=== PATIENT | female | born 1950 | race Caucasian/White ===

== ENCOUNTER 2017-01-03 18:26 | Inpatient (IN) | payer OTHER ==
--- NOTE | ~2017-01-03 | HP ---
History And Physical [facility] [address] [place]. [address] NAME: ESTRELLA MANN : 50 STATUS : ADM IN [facility]#: [id number] AGE: 66 ADM/REG DATE : 01/03/17 MR#: [id number] REPORT SERV DATE: 01/04/17 DICTATED BY: KAI AYON DATE: 01/04/17 REPORT STATUS : Draft TRANSCRIBED BY: MODCorinna DATE: 01/04/17 DATE OF ADMISSION: 01/03/2017 CHIEF COMPLAINT: A 66-year-old female presenting with recurrent pulmonary embolism. HISTORY OF PRESENT ILLNESS: The patient's history was obtained through careful interview with the patient and coupled with review of [facility] and [facility] records. The patient has a longstanding history of recurrent pulmonary embolism. She first suffered DVT and pulmonary embolism in 1998. She was on blood thinner for a number of years. For various reasons, she had to come off blood thinners, but then had a recurrence of pulmonary embolism in 2004. Her medical course has been complicated by GI bleed and vaginal bleeding. Most recently, the patient had an extreme uterine bleeding complication from anticoagulation in August 2016. She states that she recalls having about 8 units of blood transfused because of this. She was told that she really needed to come off her Coumadin because of the severity of the bleeding at that time (so she has been off Coumadin since August 2016). She was evaluated for possible surgery, but because of underlying coronary artery disease and her debilitating morbid obesity and disability, she was considered a nonsurgical candidate at this time. The patient has been doing fairly well over the last few months, but then, she has noticed increasing fatigue over the last week or two. Then a few days prior to this admission, she began to develop shortness of breath characterized by dyspnea on exertion and intermittent chest discomfort. The chest discomfort became quite severe on the evening of admission, it is in her mid and lower lung radiating to the back, a sharp quality, 7 to 8 out of 10 severity. She has had a nonproductive cough. She notices that her pain was relieved by nitroglycerin, but also exacerbated by deep breathing and coughing. She has had no further bright red blood per rectum. No further uterine or vaginal bleeding. No fevers or chills. No nausea or vomiting. No lightheadedness. No leg symptoms such as swelling or pain. She claims the diabetes is under good control. REVIEW OF SYSTEMS: Otherwise, a 14-point review of systems was obtained and was negative. PAST MEDICAL HISTORY: 1. Pulmonary embolism, diagnosed in 1998 with recurrence in 2004. 2. Vaginal bleeding, thought to be secondary to either fibroid uterus which has been History And Physical [address] [address] NAME: ESTRELLA MANN : 50 STATUS : ADM IN PAT#: [id number] AGE: 66 ADM/REG DATE : 01/03/17 MR#: [id number] REPORT SERV DATE: 01/04/17 DICTATED BY: KAI AYON DATE: 01/04/17 REPORT STATUS : Draft TRANSCRIBED BY: SOMMER DATE: 01/04/17 described in the past and/or endometriosis. For this reason taken off the Coumadin in August 2016. 3. GI bleed, followed by Dr. Scotty Hernandez. 4. Coronary artery disease with a catheterization of the heart in 2002 that showed multivessel disease, which was unamenable to percutaneous intervention and it was thought the patient was too ill chronically to undergo a CABG. 5. Diabetes. 6. Morbid obesity. 7. Pneumonia. 8. Systolic congestive heart failure. Ejection fraction of 45%. 9. Shingles. 10.B12 deficiency. 11.Sacroiliitis. 12.Diverticulitis. 13.Psoriasis. PAST SURGICAL HISTORY: 1. Cholecystectomy. 2. Distal femur fracture repair. 3. Appendectomy. 4. . 5. Hysteroscopy. ALLERGIES: IODINE, CODEINE, ASPIRIN, IBUPROFEN, CELECOXIB, FLOCTAFENINE, AND SHELLFISH. SOCIAL HISTORY: Quit smoking in 1979. No alcohol abuse. She is . Wheelchair bound. Has three children and seven grandchildren. Lives in [place], [place]. FAMILY HISTORY: Diabetes and heart disease. No family history of blood clots. CURRENT MEDICATIONS: Include DuoNeb nebulizers, aspirin 81 mg p.o. daily, Lipitor 80 mg p.o. daily, Bumex 2 mg in the morning, Bentyl p.r.n., NovoLog 15 units subcutaneous three times a day, Levemir 30 units subcutaneous at bedtime, isosorbide mononitrate 30 mg p.o. daily, Megace 20 mg p.o. daily, Lopressor 100 mg p.o. b.i.d. multivitamin, nitroglycerin as needed, Prilosec 20 mg p.o. b.i.d., Zantac 300 mg p.o. b.i.d., Ranexa 1000 mg p.o. b.i.d., Zoloft 200 mg p.o. daily, and tramadol 50 mg every 6 hours p.r.n. PHYSICAL EXAMINATION: VITAL SIGNS: Temperature 99.0, pulse of 99, blood pressure 104/59, respiratory rate 12, O2 saturation 99% on 3 L nasal cannula. GENERAL: A chronically ill-appearing female, but in no evidence of acute distress at this time. HEENT: Pupils equal, round, and reactive to light. No conjunctival pallor. No scleral icterus. Nares are patent. Oropharynx is clear of obstruction. Moist mucous membranes. NECK: Trachea midline. No thyromegaly. LYMPH: No cervical lymphadenopathy. No supraclavicular lymphadenopathy. RESPIRATORY: Clear to auscultation at bases. No wheezes, no rales, no rhonchi. The patient History And Physical [address] [address] NAME: ESTRELLA MANN : 50 STATUS : ADM IN [facility]#: [id number] AGE: 66 ADM/REG DATE : 01/03/17 MR#: [id number] REPORT SERV DATE: 01/04/17 DICTATED BY: KAI AYON DATE: 01/04/17 REPORT STATUS : Draft TRANSCRIBED BY: SOMMER DATE: 01/04/17 has a normal respiratory effort. CARDIOVASCULAR: Regular rate and rhythm. No murmurs, rubs, or gallops. No current extremity edema is appreciated. ABDOMEN: A central pattern of morbid obesity. No tenderness throughout, nondistended. No hepatosplenomegaly. DERMATOLOGICAL: Warm and dry extremities. No pallor, no cyanosis. PSYCHIATRIC: Normal affect. Good mood. Alert and oriented x3. LABORATORY DATA: White blood count 7.0, hemoglobin 13, hematocrit 40, platelets 143. Sodium 141, potassium 3.8, chloride 103, bicarb 29, BUN 19, creatinine 1.0, glucose 162. Brain natriuretic peptide 419, lipase 123, albumin 2.8, alkaline phosphatase 141, ALT 11, AST 14. STUDIES: 1. CT angiogram of the chest shows bilateral pulmonary embolism. 2. EKG by my own evaluation shows an S1Q3T3 phenomenon with sinus tachycardia at 100 beats per minute. ASSESSMENT AND PLAN: 1. Acute pulmonary embolism. Place on heparin drip IV, Coumadin. Check a venous Doppler ultrasound of lower extremities. Check an echocardiogram to rule out right ventricular strain. 2. History of bleeding, both gastrointestinal bleeding and vaginal bleeding in the past. For this reason, she was taken off her Coumadin in August 2016, not considered a good surgical candidate at this time. Sees Dr. Barney Pires, icing coater, outpatient. 3. Coronary artery disease with multivessel disease diagnosed in 2002 unamendable to percutaneous intervention. Then not considered a good coronary artery bypass graft candidate either. 4. Morbid obesity with functional paraplegia. Wheelchair bound. KPL/MODL Kai Ayon M.D. / [id number] CC: Clara Staley D.O. Joseph Portera, M.D.
--- NOTE | ~2017-01-03 | CN ---
Consultation Report [facility] [address] [place]. [address] NAME: ESTRELLA HEATH : 50 STATUS : ADM IN [facility]#: [id number] AGE: 66 ADM/REG DATE : 01/03/17 MR#: [id number] REPORT SERV DATE: 01/06/17 DICTATED BY: MASHA CAMPOS DATE: 01/06/17 REPORT STATUS : Draft TRANSCRIBED BY: MODCorinna DATE: 01/06/17 DATE OF CONSULTATION: 01/05/2017 REASON FOR CONSULTATION: Recurrent pulmonary embolism. CHIEF COMPLAINT: Shortness of breath. HISTORY OF PRESENT ILLNESS: Mrs. Heath is a 66-year-old female with a past medical history of obesity and has had recurrent pulmonary embolisms now for almost two decades. The patient has had complications with recurrent DVT and PE, but also has had GI bleeding and vaginal bleeding. She has an underlying cardiomyopathy. She is not a candidate for a vaginal hysterectomy and we discussed that. However, her INR was 1.1 and she has quite a significant amount of clot burden. Fortunately, her oxygen saturation and hypoxia is okay. The patient's blood pressure is not hypotensive. The patient actually seems quite comfortable. Otherwise, no further complaints. PAST MEDICAL HISTORY: Recurrent pulmonary embolism, vaginal bleeding, unresectable uterine fibroid, GI bleeding, diverticulitis, coronary artery disease, diabetes, morbid obesity, systolic congestive heart failure, psoriasis. MEDICATIONS: Home medications reviewed, current medication list includes DuoNeb. ALLERGIES: MULTIPLE ALLERGIES NOTED ON THE CHART. SOCIAL HISTORY: The patient quit smoking around three and a half decades ago. She is , with her at the bedside. FAMILY HISTORY: Other family members with heart disease and diabetes. PHYSICAL EXAMINATION: VITAL SIGNS: Oxygen saturation 96% on 3 L, blood pressure currently 112/55, temperature is afebrile, and heart rate is in the 80s. GENERAL: The patient is alert and oriented, in no acute distress. PULMONARY: Distant, but otherwise clear. No wheezing. CARDIAC: Regular rate. No murmurs. ABDOMEN: Soft, nontender, nondistended. NEUROLOGIC: The patient is able to move all of her extremities, but has functional paraplegia due to weight. EXTREMITIES: No lower extremity edema. Peripheral pulses noted bilaterally. No cyanosis. LABORATORY EXAMINATION: No anemia. INR 1.1, therapeutic on heparin. Good kidney function. IMAGING: CTA on 01/03 shows a significant amount of bilateral PE. ASSESSMENT AND PLAN: Mrs. Heath is a 66-year-old female with a past medical history Consultation Report [address] [address] NAME: ESTRELLA HEATH : 50 STATUS : ADM IN PAT#: [id number] AGE: 66 ADM/REG DATE : 01/03/17 MR#: [id number] REPORT SERV DATE: 01/06/17 DICTATED BY: MASHA CAMPOS DATE: 01/06/17 REPORT STATUS : Draft TRANSCRIBED BY: MODL DATE: 01/06/17 noted above, who presents to the Pulmonary Consultation Service for consideration of this pulmonary embolism and therapies thereof. Acute pulmonary embolism with a history of recurrent pulmonary embolism. The patient most likely needs lifelong anticoagulation, which has been complicated by bleeding. At this moment in time, she will need to be anticoagulated. If she begins having further uterine bleeding, recommend that she have quick followup with Dr. Pires. Unclear whether an interventional radiology procedure with uterine artery selective coiling would be necessary as she is not able to undergo a vaginal hysterectomy. The patient does have an established GI physician if she were to have a GI bleed. Otherwise, the patient is to be on anticoagulation. Due to her weight, Coumadin would be the most reliable and studied drug in this regard. Furthermore, if she needs to be reversed, with the newer agents, it is harder to reverse as quickly. Furthermore, an IVC filter currently is unnecessary as the patient is not in respiratory failure and at this moment in time, does not have an absolute contraindication to anticoagulation. Thank you very much for this consultation. If the patient has worsening hypoxia in the outpatient setting, would be happy to see the patient in the future if she develops chronic pulmonary hypertension from chronic thromboembolic disease. HFQ/MODL Masha Campos MD / [id number] CC: Clara Staley D.O.
--- NOTE | ~2017-01-03 | DS ---
Discharge Summary [facility] [address] [place]. [address] NAME: ESTRELLA MANN : 50 STATUS : DIS IN PAT#: [id number] AGE: 66 ADM/REG DATE : 01/03/17 MR#: [id number] REPORT SERV DATE: 01/12/17 DICTATED BY: RIZWAN DEL ANGEL DATE: 01/11/17 REPORT STATUS : Draft TRANSCRIBED BY: MODCorinna DATE: 01/11/17 ADMISSION DATE: 01/03/2017 DISCHARGE DATE: 01/11/2017 DISCHARGE DIAGNOSES: 1. Acute nllgwqth-vv-whyqs volume bilateral PE. 2. History of chronic systolic and diastolic heart failure. 3. History of ischemic cardiomyopathy with ejection fraction of 40%. 4. History of multivessel coronary artery disease, on medical therapy. 5. History of diabetes mellitus type 2. 6. History of recurrent vaginal bleed secondary to uterine fibroid. 7. History of uterine fibroid. 8. Super morbid obesity. 9. History of osteoarthritis affecting multiple joints. 10.History of deep vein thrombosis. DISCHARGE CONDITION: Stable. HISTORY OF PRESENT ILLNESS: For detailed HPI, please make reference to Dr. Christiano Davidson's dictation on 01/04/2017. In brief, this is a 66-year-old female with medical history of recurrent DVT and pulmonary embolism, first episode diagnosed in 1998, who was on chronic anticoagulation with warfarin, but has had multiple episodes of CVA, vaginal bleed due to large uterine fibroid. The patient was recently taken off warfarin due to concerns for vaginal bleed by welcome desk agent. The patient subsequently presented to the hospital with complaints of shortness of breath. CTA of the chest shows new acute bilateral moderate to large pulmonary emboli. The patient was admitted to the Hospitalist Service for further management. HOSPITAL COURSE: 1. Acute bilateral pulmonary embolus. The patient was started on heparin drip. An extensive discussion was had with the patient as regard to reinitiating chronic anticoagulation. After deep deliberation with the patient, the patient decided that she will rather restart Coumadin at this time. Discussion of using direct oral anticoagulation therapy such as Eliquis versus Xarelto was also brought up during the course of this admission; however, the patient reports that she is more conversant with Coumadin therapy and will rather stay on Coumadin therapy. Coumadin was initiated during the course of this admission. At the time of discharge, the patient's INR was therapeutic at 2.0. Heparin was discontinued. The patient was advised to continue warfarin as an outpatient. Home Health was also set up for the patient to assist in INR monitoring as an outpatient. The patient will follow up with her primary care physician at [facility] for INR monitoring. 2. History of recurrent vaginal bleed due to uterine fibroid. The patient was continued on megestrol acetate throughout the course of this admission as prescribed by the patient's primary welcome desk agent, Barney Pires. No evidence of vaginal bleed was noted throughout the course of this admission. The patient's H and H remained stable. The patient was advised to follow up with a welcome desk agent as an outpatient. Discharge Summary [address] [address] NAME: ESTRELLA MANN : 50 STATUS : DIS IN PAT#: [id number] AGE: 66 ADM/REG DATE : 01/03/17 MR#: [id number] REPORT SERV DATE: 01/12/17 DICTATED BY: RIZWAN DEL ANGEL DATE: 01/11/17 REPORT STATUS : Draft TRANSCRIBED BY: SOMMER DATE: 01/11/17 3. History of coronary artery disease with multivessel disease diagnosed in 2002 unamenable to percutaneous intervention. The patient is not a candidate for coronary artery bypass graft due to increased surgical risk due to super morbid obesity. The patient continues to receive medical therapy throughout the course of this admission with Ranexa and beta-rishi. The patient reported no chest pain during the course of this admission. The patient was advised to continue follow up with Cardiology as an outpatient. CONSULTATIONS: 1. Pulmonary, Dr. Campos. 2. Cardiology Dr. Oj Huntley. DISCHARGE MEDICATIONS: 1. Aspirin 81 mg p.o. daily. 2. Lipitor 80 mg p.o. at bedtime. 3. Bumex 2 mg p.o. daily. 4. Warfarin 7.5 mg p.o. daily. 5. Ranitidine 300 mg p.o. b.i.d. 6. Levemir 30 units subcu at bedtime. 7. Insulin aspart 15 units subcu t.i.d. 8. Imdur 30 mg p.o. daily. 9. Megestrol 20 mg p.o. at bedtime. 10.Lopressor 100 mg p.o. b.i.d. 11.Omeprazole 20 mg p.o. b.i.d. 12.Ranexa 1000 mg extended release p.o. b.i.d. 13.Zoloft 100 mg p.o. daily. 14.Dicyclomine 20 mg p.o. four times daily p.r.n. 15.Nitroglycerin pump spray p.r.n. for chest pain. 16.DuoNeb inhaler one every six hours p.r.n. DISCHARGE CONDITION: Stable. DISCHARGE DISPOSITION: Home with Home Health. DISCHARGE ACTIVITIES: As tolerated. FOLLOWUP: 1. The patient to follow up with primary care physician within one to two weeks of discharge. 2. Home Health to continue to monitor INR and report to the patient's primary care physician at [facility]. 3. To follow up with Cardiology as an outpatient. Greater than 30 minutes was used to prepare this patient's discharge, reconcile medication, and advise the patient on discharge plans and followup. Discharge Summary [address] [address] NAME: ESTRELLA MANN : 50 STATUS : DIS IN PAT#: [id number] AGE: 66 ADM/REG DATE : 01/03/17 MR#: [id number] REPORT SERV DATE: 01/12/17 DICTATED BY: RIZWAN DEL ANGEL DATE: 01/11/17 REPORT STATUS : Draft TRANSCRIBED BY: SOMMER DATE: 01/11/17 CHEN/SOMMER Rizwan Del Angel MD / [id number] CC: MD Epifanio Early D.O. Hisham F. Qutob, MD Kevin P Luce, M.D. Mark Thel, M.D.
--- NOTE | ~2017-01-03 | PRECARD ---
H&P [facility] [address] [place]. [address] NAME: ESTRELLA HEATH : 50 STATUS : ADM IN [facility]#: [id number] AGE: 66 ADM/REG DATE : 01/03/17 MR#: [id number] REPORT SERV DATE: 01/05/17 DICTATED BY: SG HUNTLEY DATE: 01/05/17 REPORT STATUS : Draft TRANSCRIBED BY: SOMMER DATE: 01/05/17 DATE OF ADMISSION: 01/03/2017 HISTORY OF PRESENT ILLNESS: Ms. Estrella Heath is a 66-year-old woman admitted with acute pulmonary embolism, computational theory scientist consulted because of known coronary artery disease. Ms. Heath has known coronary artery disease. She has multivessel disease, per the records she has not been a candidate for revascularization. She is admitted now with recurrent pulmonary embolism. She had history of pulmonary embolism, and she was taken off warfarin for vaginal bleeding, she is admitted with recurrent PE. She has had no cardiac symptoms. She had no chest pain. No orthopnea or PND. No palpitations. No stroke or stroke-like symptoms. PAST MEDICAL HISTORY: No morbid obesity. Coronary artery disease, history of DVT and pulmonary embolism, history of vaginal bleeding, history of lymphedema, history of osteoarthritis, prior section. FAMILY HISTORY: Positive for coronary artery disease. MEDICINES: Heparin, morphine, nitroglycerin, Zofran, Ultram. REVIEW OF SYSTEMS: Complete review of systems was obtained, pertinent negative and unremarkable except as noted above and below all systems addressed. PHYSICAL EXAMINATION: VITAL SIGNS: Blood pressure 140/70, heart rate about 70. GENERAL: Comfortable, in no acute distress. HEENT: No xanthelasma; lips without cyanosis LUNGS: Clear to auscultation, no wheezes, rales or rhonchi; good breath sounds. COR: No JVD or hepatojugular reflux, no murmurs, rubs or gallops, impulse mid clavicular line without carotid or abdominal bruits; normal S1 and S2. ABDOMEN: Bowel sounds positive, normal activity, without tenderness, masses or hepatosplenomegaly. EXTREMITIES: No edema, cyanosis. SKIN: Normal turgor. Ms: Normal muscle strength, without kyphosis/scoliosis. NEURO/PSYCH: Alert and oriented times 4, no apparent anxiety or depression. LABORATORY DATA: BUN is 17, creatinine 0.9. Hematocrit is 39.5, platelet count 147. Troponin 0.03. BNP is 447. ASSESSMENT: Ms. Heath is a 66-year-old woman admitted with acute pulmonary embolism, now on heparin anticoagulation. Her warfarin had been stopped because of history of vaginal bleeding. H&P [address] [address] NAME: ESTRELLA HEATH : 50 STATUS : ADM IN [facility]#: [id number] AGE: 66 ADM/REG DATE : 01/03/17 MR#: [id number] REPORT SERV DATE: 01/05/17 DICTATED BY: SG HUNTLEY DATE: 01/05/17 REPORT STATUS : Draft TRANSCRIBED BY: SOMMER DATE: 01/05/17 She has known coronary artery disease. Her ejection fraction is normal by echocardiogram performed yesterday. Her echo does show moderate dilated right ventricle with hypocontractility with mild bilateral atrial enlargement. She has trace MR and TR. She seems to be stable from a cardiac perspective. RV is dilated, possibly related to multiple PE's she has had in the past. She is not hypotensive, in fact, her systolic pressure has been up to 140 recently. PLAN: Continue current medical regimen, which does include aspirin, Lipitor, and ranolazine. I will defer to Dr. Peoples about starting an MITCHELL inhibitor given her diabetes with multivessel coronary artery disease. TRAVIS/SOMMER Sg Huntley M.D. / [id number] CC: Clara Staley D.O.
--- NOTE | ~2017-01-03 | IDS ---
Interim Discharge Summary [facility] [address] [place]. [address] NAME: ESTRELLA MANN : 50 STATUS : ADM IN [facility]#: [id number] AGE: 66 ADM/REG DATE : 01/03/17 MR#: [id number] REPORT SERV DATE: 01/09/17 DICTATED BY: JOSEPH ROE DATE: 01/09/17 REPORT STATUS : Draft TRANSCRIBED BY: SOMMER DATE: 01/09/17 ADMISSION DATE: 01/03/2017 DISCHARGE DATE: Date that my colleague will be taking over this patient is 01/10/2017. CONDITION: Condition of the patient so far is stable. DIAGNOSES: So far include the followin. Acute recurrent bilateral pulmonary embolism-the patient is still on IV heparin as she is subtherapeutic in her INR and her INR is 1.7 today. The patient is being given Coumadin too at the same time. She may need another day up to 5 mg of Coumadin before her INR becomes therapeutic and once this happens, she will be ready to go home. 2. Chronic systolic and diastolic heart failure from ischemic cardiomyopathy with an ejection fraction of 40%. This is stable. The patient continues to be on Bumex for this. 3. Multivessel coronary artery disease. This is inoperable and not amenable for stenting and med management only, and this is at this time, stable as the patient has no symptoms at this time. 4. Diabetes mellitus, which is very well controlled with an A1c of 6.8, and the patient is on the right dose of home insulin for this. 5. History of severe vaginal bleed from fibroids. Dr. Pires is the patient's runner on. Unfortunately, the patient is not even a candidate for hysterectomy according to Dr. Pires and the padded box sewer, who conferenced together and decided that she is not a candidate for even vaginal hysterectomy because of her heart condition. So, at this time, we are hoping that the patient will not have another episode of recurrent vaginal bleed. Since it is more important at this time that the patient be on Coumadin because of her repetitive and recurrent pulmonary embolism, we have restarted her on Coumadin and she will have to be on Coumadin for life. The only other suggestion is that if the patient has a recurrent vaginal bleed, she may be a candidate for what is called uterine artery coiling so that blood supply to the uterus can be cut off by this procedure and hopefully she will not have another bleed. However, patient understands that this is a specialized procedure and she will bring this up with Dr. Pires. This was upon the suggestion by hydramatic mechanic actually. BRIEF HOSPITAL COURSE: The patient is a very pleasant 66-year-old morbidly obese female patient with a history of severe vaginal bleed in the past from fibroids which are inoperable, came in with difficulty breathing and with an acute recurrent pulmonary embolism. The hydramatic mechanic and padded box sewer both have been consulted during this admission and both have signed off at this time. Anyway, it was decided that the patient is a candidate for IV heparin along with Coumadin to keep her INR therapeutic between 2 and 3 despite the risk of bleed. At this time, really hardly and strongly weighing the risks and benefits and after multiple discussions between satellite specialist and hydramatic mechanic, we have come to the consensus that she needs the anticoagulation more than anything else at this time. If she has another PE, this could kill the patient and she understands that. At the same time, the patient could have another episode of severe vaginal bleeding from the Interim Discharge Summary [address] [address] NAME: ESTRELLA MANN : 50 STATUS : ADM IN [facility]#: [id number] AGE: 66 ADM/REG DATE : 01/03/17 MR#: [id number] REPORT SERV DATE: 01/09/17 DICTATED BY: JOSEPH ROE DATE: 01/09/17 REPORT STATUS : Draft TRANSCRIBED BY: MODL DATE: 01/09/17 fibroids that she has; hence, the above suggestion of embolization to the uterine artery. At this time, this note will be sent also to the patient's runner on, Dr. Pires. Anyhow, she did well during hospitalization and her shortness of breath completely resolved and she is back at baseline. The patient is not very functional at home because of her morbid obesity. She is wheelchair bound. It appears that she is back at her baseline when it comes to physical activity, but she is still subtherapeutic in her INR and INR continues to be 1.7. Hence today, I have gone ahead and given her another dose of Coumadin at 5 mg and hopefully when she gets therapeutic, the plan is to discharge her home. A copy of this to be sent to her runner on, Dr. Pires and also to her primary care physician at this time. All her home medications have been stable and have all been continued while in the hospital as she is on optimum medications. She is also on med management only for multivessel coronary artery disease and at this time, is totally asymptomatic with the metoprolol, ranolazine, lisinopril, and isosorbide mononitrate that the patient takes. She is also on aspirin and Lipitor 40 mg and also for her ischemic cardiomyopathy and chronic heart failure, she is on Bumex 2 mg once a day and does well with this. My colleague will be taking over care of this patient on 01/10/2017. DAVID/SOMMER Joseph Roe M.D. / [id number] CC: Clara Staley D.O. Joseph Portera, M.D.
[~2017-01-03 18:26] MED LIST: ACET500CAP PO; ASAB PO; ATEN50 PO; BEN25 PO; BENTYL20 PO; BUM2 PO; C5 PO; CENTRUM PO; COUMADIN4 MG PO; COZ25 PO; CRESTOR40 MG PO; DELSYM30 MG/5 ML PO; GI COCKTAIL 4040 ML PO/LIQ; HUMALOG SC; IMDUR30 PO; INSULIN DEGLUDEC SC; INSULIN SC; INSULIN SQ; LEVAQUIN5T PO; LEVEMIR SC; LIPITOR80 MG PO; LOP100 PO; LOVENOX1C SC; MEG20 PO; MEG40 PO; MELA3 PO; MEVACOR PO; MEVACOR40 MG PO; MVI PO; NITROSTAT0.4 MG SL; NOVOLOG SC; OMNICEF300 PO; ONGLYZA5 MG PO; PRILO PO; PRIN10 PO; RAN500 PO; RANITIDINE300 MG PO; TOUJEO SC; ULTRAM50 PO; VITAMIN C100 M1 PO; VITAMIN D1000 UNI1 PO; ZANTAC300 MG PO; ZOL100 PO; [UNRECOGNIZED DRUG - OTHER] EX
[2017-01-03 19:33] LABS: BASOPHILS 0.1 %; BASOPHILS ABSOLUTE 0.01 10/3/uL (0.0-0.16); EOSINOPHILS ABSOLUTE 0.21 10/3/uL (0.0-0.53); ER CBC TAT 0 Hrs 08 Mins; HEMATOCRIT 40.3 % (36.0-48.0); IMMATURE GRANULOCYTES 0.1 %; IMMATURE GRANULOCYTES ABSOLUTE 0.01 10/3/uL (0.0-0.11); LYMPHOCYTES 26.6 %; LYMPHOCYTES ABSOLUTE 1.86 10/3/uL (0.67-4.30); MEAN CORPUSCULAR HEMOGLOB 28.3 pg (26.0-34.0); MEAN CORPUSCULAR VOLUME 87.6 fL (80-100); MEAN PLATELET VOLUME 10.8 fL (9.2-13.0); MONOCYTES 7.2 %; PLATELET COUNT 143 10/3/uL (150-400)
[2017-01-03 19:36] LABS: MANUAL DIFF NO %; MEAN CORPUS HGB CONC 32.3 g/dL (32.0-36.0)
[2017-01-03 19:49] LABS: A/G RATIO 0.5 (0.7-1.9); ALBUMIN 2.8 G/DL (3.5-5.0); ALKALINE PHOSPHATASE 141 U/L (45-117); BUN (BLOOD UREA NITROGEN) 19 MG/DL (6-23); CHLORIDE, SERUM 103 MMOL/L (96-112); CO2 (CARBON DIOXIDE) 29 MMOL/L (24-34); CREATININE 1.02 MG/DL (0.55-1.02); DIRECT BILIRUBIN 0.2 MG/DL (0.0-0.4); GFR AFRICAN AMERICAN 66 ML/MIN (>=60); GFR NON AFRICAN AMERICAN 57 ML/MIN (>=60); GLOBULIN 5.1 G/DL (2.5-4.1); GLUCOSE, SERUM 162 MG/DL (60-99); INDIRECT BILIRUBIN(NOT ORDER) 0.5 MG/DL (0.1-0.9); POTASSIUM, SERUM 3.8 MMOL/L (3.5-5.3); SGOT(AST) 14 U/L (5-40); SGPT(ALT) 11 U/L (5-65); SODIUM, SERUM 141 MMOL/L (135-148); TOTAL BILIRUBIN 0.7 MG/DL (0-1.2); TOTAL PROTEIN 7.9 G/DL (6.0-8.5)
[2017-01-03 20:04] LABS: D-DIMER QUANTITATIVE > 20.00 ug/mLFEU (< 0.50)
[2017-01-04] MEDS ORDERED: ASAB PO (00:27)
[2017-01-04] MEDS ORDERED: IMDUR30 PO (00:28)
[2017-01-04] MEDS ORDERED: LIPITOR80 MG PO (00:28)
[2017-01-04] MEDS ORDERED: BENTYL20 PO (00:28)
[2017-01-04] MEDS ORDERED: BUM2 PO (00:28)
[2017-01-04] MEDS ORDERED: LEVEMFLXPN SC (00:29)
[2017-01-04] MEDS ORDERED: MULTIVIT/MIN PO (00:29)
[2017-01-04] MEDS ORDERED: MEG20 PO (00:29)
[2017-01-04] MEDS ORDERED: LOP100 PO (00:29)
[2017-01-04] MEDS ORDERED: NITROSTAT0.4 MG MT (00:30)
[2017-01-04] MEDS ORDERED: PRILO PO (00:30)
[2017-01-04] MEDS ORDERED: NOVOPEN SC (00:30)
[2017-01-04] MEDS ORDERED: RANEXA1000 MG PO (00:31)
[2017-01-04] MEDS ORDERED: ZANTAC300 MG PO (00:32)
[2017-01-04] MEDS ORDERED: ZOL100 PO (00:32)
[2017-01-04] MEDS ORDERED: ULTRAM50 PO (00:32)
[2017-01-04] MEDS ORDERED: DUONEB INH (00:33)
[2017-01-04 06:55] LABS: BASOPHILS 0 %; EOSINOPHILS 0 %; HEMATOCRIT 39.5 % (36.0-48.0); HEMOGLOBIN 12.8 g/dL (12.0-16.0); IMMATURE GRANULOCYTES 0.2 %; IMMATURE GRANULOCYTES ABSOLUTE 0.01 10/3/uL (0.0-0.11); LYMPHOCYTES 21.4 %; LYMPHOCYTES ABSOLUTE 0.94 10/3/uL (0.67-4.30); MANUAL DIFF NO %; MEAN CORPUS HGB CONC 32.4 g/dL (32.0-36.0); MEAN CORPUSCULAR HEMOGLOB 28.6 pg (26.0-34.0); MEAN CORPUSCULAR VOLUME 88.4 fL (80-100); MONOCYTES 1.6 %; MONOCYTES ABSOLUTE 0.07 10/3/uL (0.21-1.20); NEUTROPHILS 76.8 %; NEUTROPHILS ABSOLUTE 3.37 10/3/uL (2.02-8.40); PLATELET COUNT 147 10/3/uL (150-400); RBC DISTRIBUTION WIDTH 20.8 % (12.0-16.0); RED CELL COUNT 4.47 10/6/uL (4.0-5.6); WHITE BLOOD CELLS 4.4 10/3/uL (4.5-10.5)
[2017-01-04 07:01] LABS: INTERNATIONAL NORMAL RATI 1.1 UNITS (-); PROTIME (NOT ORD) 14.5 SEC (12.0-14.5)
[2017-01-04 07:02] LABS: PARTIAL THROMBO TIME 39.4 SEC (22.5-37.2)
[2017-01-04 07:23] LABS: A/G RATIO 0.6 (0.7-1.9); ALBUMIN 2.7 G/DL (3.5-5.0); ALKALINE PHOSPHATASE 138 U/L (45-117); BUN (BLOOD UREA NITROGEN) 17 MG/DL (6-23); CALCIUM, SERUM 9.2 MG/DL (8.5-10.4); CHLORIDE, SERUM 104 MMOL/L (96-112); CREATININE 0.96 MG/DL (0.55-1.02); GFR AFRICAN AMERICAN 71 ML/MIN (>=60); GFR NON AFRICAN AMERICAN 62 ML/MIN (>=60); GLOBULIN 4.9 G/DL (2.5-4.1); POTASSIUM, SERUM 4.2 MMOL/L (3.5-5.3); SGPT(ALT) 15 U/L (5-65); SODIUM, SERUM 139 MMOL/L (135-148); TOTAL BILIRUBIN 0.6 MG/DL (0-1.2); TOTAL PROTEIN 7.6 G/DL (6.0-8.5); TROPONIN I 0.03 NG/ML (<0.05)
[2017-01-04 07:29] LABS: CO2 (CARBON DIOXIDE) 24 MMOL/L (24-34); GLUCOSE, SERUM 259 MG/DL (60-99); SGOT(AST) 18 U/L (5-40)
[2017-01-04 09:38] LABS: B NATRIURETIC PEPTIDE (BNP) 447.4 PG/ML (< 100.0)
[2017-01-04 12:12] LABS: GLYCOHEMOGLOBIN (HbA1c) 6.8 % (4.7-6.1)
[2017-01-05 07:15] LABS: BASOPHILS 0.1 %; BASOPHILS ABSOLUTE 0.01 10/3/uL (0.0-0.16); EOSINOPHILS 3.4 %; EOSINOPHILS ABSOLUTE 0.26 10/3/uL (0.0-0.53); HEMATOCRIT 40.1 % (36.0-48.0); HEMOGLOBIN 12.9 g/dL (12.0-16.0); IMMATURE GRANULOCYTES 0.1 %; IMMATURE GRANULOCYTES ABSOLUTE 0.01 10/3/uL (0.0-0.11); LYMPHOCYTES 37.4 %; LYMPHOCYTES ABSOLUTE 2.86 10/3/uL (0.67-4.30); MEAN CORPUS HGB CONC 32.2 g/dL (32.0-36.0); MEAN CORPUSCULAR HEMOGLOB 28.7 pg (26.0-34.0); MEAN CORPUSCULAR VOLUME 89.1 fL (80-100); MEAN PLATELET VOLUME 11.3 fL (9.2-13.0); MONOCYTES 6.3 %; MONOCYTES ABSOLUTE 0.48 10/3/uL (0.21-1.20); NEUTROPHILS 52.7 %; NEUTROPHILS ABSOLUTE 4.03 10/3/uL (2.02-8.40); PLATELET COUNT 165 10/3/uL (150-400); RBC DISTRIBUTION WIDTH 20.9 % (12.0-16.0)
[2017-01-05 07:18] LABS: MANUAL DIFF NO %; WHITE BLOOD CELLS 7.7 10/3/uL (4.5-10.5)
[2017-01-05 07:21] LABS: PARTIAL THROMBO TIME 50.6 SEC (22.5-37.2)
[2017-01-05 07:29] LABS: BUN (BLOOD UREA NITROGEN) 18 MG/DL (6-23); CALCIUM, SERUM 9.4 MG/DL (8.5-10.4); CHLORIDE, SERUM 104 MMOL/L (96-112); CO2 (CARBON DIOXIDE) 26 MMOL/L (24-34); CREATININE 0.87 MG/DL (0.55-1.02); GFR AFRICAN AMERICAN 80 ML/MIN (>=60); GFR NON AFRICAN AMERICAN 69 ML/MIN (>=60); GLUCOSE, SERUM 167 MG/DL (60-99); POTASSIUM, SERUM 3.5 MMOL/L (3.5-5.3); SODIUM, SERUM 143 MMOL/L (135-148)
[2017-01-05 11:37] LABS: INTERNATIONAL NORMAL RATI 1.1 UNITS (-); PROTIME (NOT ORD) 14.4 SEC (12.0-14.5)
[2017-01-06 04:37] LABS: INTERNATIONAL NORMAL RATI 1.1 UNITS (-); PROTIME (NOT ORD) 14.1 SEC (12.0-14.5)
[2017-01-06 04:38] LABS: PARTIAL THROMBO TIME 74.3 SEC (22.5-37.2)
[2017-01-07 04:49] LABS: INTERNATIONAL NORMAL RATI 1.1 UNITS (-); PROTIME (NOT ORD) 14.5 SEC (12.0-14.5)
[2017-01-08 01:51] LABS: INTERNATIONAL NORMAL RATI 1.1 UNITS (-); PROTIME (NOT ORD) 14.2 SEC (12.0-14.5)
[2017-01-08 01:52] LABS: PARTIAL THROMBO TIME 69.2 SEC (22.5-37.2)
[2017-01-09 03:53] LABS: BASOPHILS 0.3 %; BASOPHILS ABSOLUTE 0.02 10/3/uL (0.0-0.16); EOSINOPHILS 5.8 %; EOSINOPHILS ABSOLUTE 0.42 10/3/uL (0.0-0.53); HEMATOCRIT 38.7 % (36.0-48.0); HEMOGLOBIN 12.5 g/dL (12.0-16.0); IMMATURE GRANULOCYTES 0.3 %; IMMATURE GRANULOCYTES ABSOLUTE 0.02 10/3/uL (0.0-0.11); LYMPHOCYTES ABSOLUTE 2.53 10/3/uL (0.67-4.30); MEAN CORPUS HGB CONC 32.3 g/dL (32.0-36.0); MEAN CORPUSCULAR HEMOGLOB 28.2 pg (26.0-34.0); MEAN CORPUSCULAR VOLUME 87.2 fL (80-100); MEAN PLATELET VOLUME 10.9 fL (9.2-13.0); MONOCYTES 5.9 %; MONOCYTES ABSOLUTE 0.43 10/3/uL (0.21-1.20); NEUTROPHILS 52.7 %; NEUTROPHILS ABSOLUTE 3.81 10/3/uL (2.02-8.40); PLATELET COUNT 175 10/3/uL (150-400); RBC DISTRIBUTION WIDTH 20.3 % (12.0-16.0); RED CELL COUNT 4.44 10/6/uL (4.0-5.6); WHITE BLOOD CELLS 7.2 10/3/uL (4.5-10.5)
[2017-01-09 03:54] LABS: MANUAL DIFF NO %
[2017-01-09 04:03] LABS: CALCIUM, SERUM 8.8 MG/DL (8.5-10.4); CHLORIDE, SERUM 98 MMOL/L (96-112); CREATININE 0.79 MG/DL (0.55-1.02); GFR AFRICAN AMERICAN 90 ML/MIN (>=60); GFR NON AFRICAN AMERICAN 78 ML/MIN (>=60); GLUCOSE, SERUM 149 MG/DL (60-99); SODIUM, SERUM 137 MMOL/L (135-148)
[2017-01-09 04:05] LABS: BUN (BLOOD UREA NITROGEN) 11 MG/DL (6-23); CO2 (CARBON DIOXIDE) 34 MMOL/L (24-34)
[2017-01-09 04:13] LABS: INTERNATIONAL NORMAL RATI 1.7 UNITS (-); PROTIME (NOT ORD) 20.1 SEC (12.0-14.5)
[2017-01-10 05:54] LABS: BASOPHILS 0.1 %; BASOPHILS ABSOLUTE 0.01 10/3/uL (0.0-0.16); EOSINOPHILS 4.9 %; EOSINOPHILS ABSOLUTE 0.34 10/3/uL (0.0-0.53); HEMOGLOBIN 12.7 g/dL (12.0-16.0); IMMATURE GRANULOCYTES 0.3 %; IMMATURE GRANULOCYTES ABSOLUTE 0.02 10/3/uL (0.0-0.11); LYMPHOCYTES 32.7 %; LYMPHOCYTES ABSOLUTE 2.29 10/3/uL (0.67-4.30); MEAN CORPUS HGB CONC 32.6 g/dL (32.0-36.0); MEAN CORPUSCULAR HEMOGLOB 28.7 pg (26.0-34.0); MEAN CORPUSCULAR VOLUME 88.2 fL (80-100); MEAN PLATELET VOLUME 10.8 fL (9.2-13.0); MONOCYTES 6.8 %; MONOCYTES ABSOLUTE 0.48 10/3/uL (0.21-1.20); NEUTROPHILS 55.2 %; NEUTROPHILS ABSOLUTE 3.87 10/3/uL (2.02-8.40); PLATELET COUNT 178 10/3/uL (150-400); RBC DISTRIBUTION WIDTH 20.2 % (12.0-16.0); RED CELL COUNT 4.42 10/6/uL (4.0-5.6)
[2017-01-10 05:56] LABS: MANUAL DIFF NO %
[2017-01-10 06:02] LABS: BUN (BLOOD UREA NITROGEN) 13 MG/DL (6-23); CALCIUM, SERUM 9.2 MG/DL (8.5-10.4); CHLORIDE, SERUM 101 MMOL/L (96-112); CO2 (CARBON DIOXIDE) 30 MMOL/L (24-34); GFR AFRICAN AMERICAN 77 ML/MIN (>=60); GFR NON AFRICAN AMERICAN 67 ML/MIN (>=60); GLUCOSE, SERUM 144 MG/DL (60-99); INTERNATIONAL NORMAL RATI 1.8 UNITS (-); PROTIME (NOT ORD) 20.3 SEC (12.0-14.5); SODIUM, SERUM 139 MMOL/L (135-148)
[2017-01-10 06:03] LABS: PARTIAL THROMBO TIME 78.1 SEC (22.5-37.2)
[2017-01-11 05:54] LABS: BASOPHILS 0.2 %; BASOPHILS ABSOLUTE 0.01 10/3/uL (0.0-0.16); EOSINOPHILS 3.8 %; EOSINOPHILS ABSOLUTE 0.24 10/3/uL (0.0-0.53); HEMATOCRIT 38.9 % (36.0-48.0); HEMOGLOBIN 12.5 g/dL (12.0-16.0); IMMATURE GRANULOCYTES 0.2 %; IMMATURE GRANULOCYTES ABSOLUTE 0.01 10/3/uL (0.0-0.11); LYMPHOCYTES 35.9 %; LYMPHOCYTES ABSOLUTE 2.29 10/3/uL (0.67-4.30); MEAN CORPUS HGB CONC 32.1 g/dL (32.0-36.0); MEAN CORPUSCULAR HEMOGLOB 28.5 pg (26.0-34.0); MEAN CORPUSCULAR VOLUME 88.6 fL (80-100); MEAN PLATELET VOLUME 10.9 fL (9.2-13.0); MONOCYTES 7.1 %; MONOCYTES ABSOLUTE 0.45 10/3/uL (0.21-1.20); NEUTROPHILS 52.8 %; NEUTROPHILS ABSOLUTE 3.37 10/3/uL (2.02-8.40); PLATELET COUNT 182 10/3/uL (150-400); RBC DISTRIBUTION WIDTH 20.1 % (12.0-16.0); RED CELL COUNT 4.39 10/6/uL (4.0-5.6); WHITE BLOOD CELLS 6.4 10/3/uL (4.5-10.5)
[2017-01-11 05:56] LABS: MANUAL DIFF NO %
[2017-01-11 06:02] LABS: PROTIME (NOT ORD) 22.2 SEC (12.0-14.5)
[2017-01-11 06:05] LABS: BUN (BLOOD UREA NITROGEN) 13 MG/DL (6-23); CALCIUM, SERUM 9.4 MG/DL (8.5-10.4); CHLORIDE, SERUM 99 MMOL/L (96-112); CO2 (CARBON DIOXIDE) 30 MMOL/L (24-34); CREATININE 0.77 MG/DL (0.55-1.02); GFR AFRICAN AMERICAN 93 ML/MIN (>=60); GFR NON AFRICAN AMERICAN 80 ML/MIN (>=60); GLUCOSE, SERUM 153 MG/DL (60-99); POTASSIUM, SERUM 3.7 MMOL/L (3.5-5.3); SODIUM, SERUM 139 MMOL/L (135-148)
[2017-01-11] MEDS ORDERED: COUMADIN7.5 MG PO (10:56)
[2017-02-25] MEDS ORDERED: ZANTAC300 MG PO (20:05)
[2017-02-25] MEDS ORDERED: LOP100 PO (20:05)
[2017-02-25] MEDS ORDERED: PRILO PO (20:06)
[2017-02-25] MEDS ORDERED: ULTRAM50 PO (20:06)
[2017-02-25] MEDS ORDERED: LEVAQUIN750 MG PO (20:06)
[2017-02-25] MEDS ORDERED: MELATONIN5 M1 PO (20:07)
[2017-02-25] MEDS ORDERED: C5 PO (20:11)
[2017-02-25] MEDS ORDERED: BENTYL20 PO (20:12)
[2017-02-25] MEDS ORDERED: RANEXA1000 MG PO (20:12)
[2017-02-25] MEDS ORDERED: BUM2 PO (20:13)
[2017-02-25] MEDS ORDERED: MONOKET20 PO (20:13)
[2017-02-25] MEDS ORDERED: MEG20 PO (20:13)
[2017-02-25] MEDS ORDERED: ZOL100 PO (20:14)
[2017-02-25] MEDS ORDERED: LIPITOR80 MG PO (20:14)
[2017-02-27] MEDS ORDERED: MEG20 PO (20:41)
[2017-02-27] MEDS ORDERED: ZOL100 PO (20:41)
[2017-02-27] MEDS ORDERED: IMDUR30 PO (20:42)
[2017-02-27] MEDS ORDERED: LEVAQUIN750 MG PO (20:42)
[2017-02-27] MEDS ORDERED: PRIN10 PO (20:43)
[2017-02-27] MEDS ORDERED: LEVEMIR SC (20:43)
[2017-02-27] MEDS ORDERED: NOVOLOG SC (20:43)
[2017-02-27] MEDS ORDERED: NITROGLYCERIN SPRAY MT (21:00)
[2017-03-03] MEDS ORDERED: P10 PO (10:27)
[2017-03-03] MEDS ORDERED: HUMI (10:28)
[2017-03-03] MEDS ORDERED: VENTOLIN HFA INH (10:28)
[2017-03-03] MEDS ORDERED: DSS PO (10:29)
== END 2017-01-11 14:13 | disposition home health service (06) | DRG 176 ==
LOC: ER 18:26 → 6NO 23:53
PROVIDERS: Hospitalist; Internal Medicine; Specialist
DX: I26.99 Other pulmonary embolism without acute cor pulmonale (principal); I50.42 Chronic combined systolic (congestive) and diastolic (congestive) heart failure; I27.81 Cor pulmonale (chronic); Z68.44 Body mass index [BMI] 60.0-69.9, adult; E66.01 Morbid (severe) obesity due to excess calories; I82.411 Acute embolism and thrombosis of right femoral vein; I25.10 Atherosclerotic heart disease of native coronary artery without angina pectoris; Z86.718 Personal history of other venous thrombosis and embolism; Z86.711 Personal history of pulmonary embolism; D25.9 Leiomyoma of uterus, unspecified; M19.90 Unspecified osteoarthritis, unspecified site; E11.9 Type 2 diabetes mellitus without complications; R09.02 Hypoxemia
CPT/HCPCS: 71010; 71275; 80048; 80053; 82248; 82962; 83036; 83690; 83735; 83880; 84132; 84443; 84484; 85025; 85379; 85610; 85730; 87040; 93005; 93306; 93970; 96374; 97162-GP; 97165-GO; 99285; A9270-GY; J1200; J2920; Q9967